=== PATIENT | male | born 1980 | race Caucasian/White ===

== ENCOUNTER 2016-06-16 16:58 | Inpatient (IN) | payer BC ==
[2016-06-16] MEDS ORDERED: ASPIRIN 81 MG TABLET, CHEWABLE PO ONE (17:03)
--- NOTE | 2016-06-16 17:08 | ER Document Report ---
ED Medical Screen (RME) - General Stated Complaint: CHEST PAIN Mode of Arrival: Ambulatory Information source: Patient Notes: Patient presents to the emergency department with reports of crushing chest pain with shortness of breath that started when he got out of the shower this afternoon. He also reported that he started sweating. Denies history of cardiac disease. Denies history of recent drug use. Reports grandfather with a history of cardiac disease, pacemaker. - Related Data Allergies/Adverse Reactions: No Known Allergies Allergy (Verified 06/16/16 17:02)
[2016-06-16 17:38] LABS: ABSOLUTE BASOPHILS # (AUTO) 0.1 10^3/uL (0.0-0.2); ABSOLUTE EOSINOPHILS # (AUTO) 0.3 10^3/uL (0.0-0.6); ABSOLUTE LYMPHOCYTES (AUTO) 3.1 10^3/uL (0.5-4.7); ABSOLUTE NEUT (AUTO) 8.7 10^3/uL (1.7-8.2); BASOPHILS % (AUTO) 0.5 % (0-2); EOSINOPHILS % (AUTO) 2.1 % (0-6); HEMOGLOBIN 14.7 g/dL (13.5-17.0); HGB HCT DIFFERENCE 0.1; LYMPHOCYTES % (AUTO) 23.6 % (13-45); MEAN CORPUSCULAR HEMOGLOBIN 29.5 pg (27.0-33.4); MEAN CORPUSCULAR HGB CONC 33.4 g/dL (32.0-36.0); MEAN CORPUSCULAR VOLUME 88 fl (80-97); MONOCYTES % (AUTO) 7.7 % (3-13); RED BLOOD COUNT 4.99 10^6/uL (4.35-5.55); RED CELL DISTRIBUTION WIDTH 13.3 % (11.5-14.0); SEGMENTED NEUTROPHILS % (AUTO) 66.1 % (42-78); WHITE BLOOD COUNT 13.1 10^3/uL (4.0-10.5)
[2016-06-16] MEDS ORDERED: ASPIRIN 325 MG TABLET PO ONE (17:41)
[2016-06-16] MEDS ORDERED: NITROGLYCERIN 0.4 MG/TAB 25 TAB/BOTTLE SL PRN (17:41)
[2016-06-16 17:53] LABS: ALANINE AMINOTRANSFERASE 65 U/L (21-72); ALBUMIN 3.8 g/dL (3.5-5.0); ALKALINE PHOSPHATASE 57 U/L (38-126); ANION GAP 10 (5-19); ASPARTATE AMINO TRANSFERASE 28 U/L (17-59); BILIRUBIN,TOTAL 0.5 mg/dL (0.2-1.3); BLOOD UREA NITROGEN 13 mg/dL (7-20); CARBON DIOXIDE 29 mmol/L (22-30); CHLORIDE 100 mmol/L (98-107); CREATINE KINASE 166 U/L (55-170); CREATININE RESULT 1.09 mg/dL (0.52-1.25); GLUCOSE 94 mg/dL (75-110); POTASSIUM 4.4 mmol/L (3.6-5.0); SODIUM 139.1 mmol/L (137-145); TOTAL PROTEIN 6.7 g/dL (6.3-8.2)
[2016-06-16 18:03] LABS: CREATINE KINASE MB 2.02 ng/mL (<4.55)
--- NOTE | 2016-06-16 18:03 | ER Document Report ---
ED General - General Chief Complaint: Chest Pain > 30 Stated Complaint: CHEST PAIN Time seen by provider: 17:30 Mode of Arrival: Ambulatory Information source: Patient Notes: 35-year-old male reports abrupt onset of left midsternal chest heaviness associated with shortness of breath and diaphoresis when getting out of the shower proximal and 90 minutes prior to arrival. He reports a prior history of symptoms like this. He reports last week having subjective fever chills nausea vomiting diarrhea but says all those symptoms have resolved. 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 He reports no recent history of travel or immobilization. He reports he felt well this morning. He denies pain numbness weakness or swelling to extremities, hematemesis, hematochezia, melena, dysuria, abdominal pain, or back pain. He reports his grandfather had extensive heart disease. Physical Exam: General: Alert, appears well. HEENT: Normocephalic. Atraumatic. PERRLA. Extraocular movements intact. Oropharynx clear. Neck: Supple. Non-tender. No JVD no carotid bruits Respiratory: No respiratory distress. Clear and equal breath sounds bilaterally. The patient does not reproduce patient's pain Cardiovascular: Regular rate and rhythm. PMI nondisplaced Abdominal: Normal Inspection. Soft, non-tender. No distension. Normal Bowel Sounds. Back: Non-tender. No deformity or step off. Extremities: Moves all four extremities. Upper extremities: Normal inspection. Non-tender. Normal color. Normal ROM. Normal temperature. Lower extremities: Normal inspection. Non-tender. No edema. Normal color. Normal ROM. Normal temperature. No Homans sign bilaterally Neurological: Speech clear mentation normal moves all extremities well amylase without difficulty Psychological: Normal affect. Normal Mood. Skin: Warm. Dry. Normal color. TRAVEL OUTSIDE OF THE [place] IN LAST 30 DAYS: No - Related Data Allergies/Adverse Reactions: No Known Allergies Allergy (Verified 06/16/16 17:02) Past Medical History - General Information source: Patient - Social History Smoking Status: Current Every Day Smoker Chew tobacco use (# tins/day): No Frequency of alcohol use: None Drug Abuse: None Family History: CAD, Other - Father with history of blood clot in leg Sister with history of PE Patient has suicidal ideation: No Patient has homicidal ideation: No - Past Medical History Cardiac Medical History: Reports: Hx DVT Neurological Medical History: Reports: None Endocrine Medical History: Reports: None Renal/ Medical History: Denies: Hx Peritoneal Dialysis Review of Systems - Review of Systems Constitutional: denies: Chills, Fever EENT: denies: Ear pain, Throat pain Cardiovascular: See HPI Respiratory: See HPI Gastrointestinal: denies: Abdominal pain, Nausea, Vomiting Genitourinary: denies: Burning, Dysuria Musculoskeletal: denies: Back pain Hematologic/Lymphatic: denies: Swollen glands Neurological/Psychological: denies: Weakness, Numbness Physical Exam - Vital signs Vitals: Resp Pulse Ox 25 H 97 06/16/16 17:50 06/16/16 17:50 Course - Re-evaluation Re-evalutation: 06/16/16 18:52 Glycerin Operator reports bilateral pulmonary emboli involving all segmental branches but there is flow past with no saddle embolus. Patient is hemodynamically stable with no hypoxia. Have discussed case with Dr. Vasques hospitalist service and she will inform oncoming shift manager physician Dr. Chandler and request patient receive orders for [facility] bed inpatient. First full dose Lovenox order has been given - Vital Signs Vital signs: Temp Pulse Resp BP Pulse Ox 16 105/68 92 06/16/16 18:01 06/16/16 18:01 06/16/16 18:01 - Laboratory Result Diagrams: 06/16/16 17:20 06/16/16 17:20 Laboratory results interpreted by me: 06/16/16 17:20 WBC 13.1 H Absolute Neutrophils 8.7 H - Diagnostic Test Radiology reviewed: Image reviewed, Reports reviewed - EKG Interpretation by Me Additional EKG results interpreted by me: 06/16/16 18:01 EKG reviewed by myself shows sinus rhythm at 89 S1 Q 3 T3 is noted Discharge - Discharge Clinical Impression: Pulmonary embolism Qualifiers: Pulmonary embolism type: other Chronicity: acute Acute cor pulmonale presence: without acute cor pulmonale Qualified Code(s): I26.99 - Other pulmonary embolism without acute cor pulmonale Condition: Serious Disposition: ADMITTED INPATIENT Admitting Provider: Hospitalist Unit Admitted: IMCU
[2016-06-16 18:11] LABS: TROPONIN I 0.266 ng/mL
[2016-06-16] MEDS ORDERED: MORPHINE SULFATE 10 MG/ML INJ IV ONE (18:15)
--- NOTE | 2016-06-16 18:21 | EKG REPORT ---
SEVERITY:- BORDERLINE ECG - SINUS RHYTHM NONSPECIFIC ST-T CHANGES- INFERIOR LEADS : Confirmed by: Quirino Grove MD 16-Jun-2016 18:20:35
[2016-06-16] MEDS ORDERED: ENOXAPARIN SODIUM INJ 120 MG/0.8 ML DISP.SYRIN SUBCUT SCH ×2 (18:45→19:15)
[2016-06-16] MEDS ORDERED: IPRATROPIUM/ALBUTEROL 0.5-2.5 MG/3 ML AMPUL NEB PRN (19:16)
[2016-06-16] MEDS ORDERED: ACETAMINOPHEN 325 MG TABLET PO PRN (19:16)
[2016-06-16] MEDS ORDERED: ONDANSETRON HCL INJ/PF 4 MG/2 ML SDV IV PRN (19:16)
[2016-06-16] MEDS ORDERED: MORPHINE SULFATE 10 MG/ML INJ IV PRN (19:20)
[2016-06-16] MEDS ORDERED: ENOXAPARIN SODIUM INJ 120 MG/0.8 ML DISP.SYRIN SUBCUT ONE (20:00)
[2016-06-16 21:15] LABS: APPEARANCE,URINE CLEAR; BILIRUBIN,URINE NEGATIVE (NEGATIVE); GLUCOSE, URINE NEGATIVE (NEGATIVE); KETONES,URINE NEGATIVE (NEGATIVE); LEUKOCYTE ESTERASE,URINE NEGATIVE (NEGATIVE); NITRITE,URINE NEGATIVE (NEGATIVE); PROTEIN,URINE NEGATIVE (NEGATIVE); URINE SPECIFIC GRAVITY 1.032; UROBILINOGEN,URINE NEGATIVE mg/dL (<2.0)
[2016-06-16 21:42] LABS: URINE BARBITURATES SCREEN NEGATIVE; URINE METHADONE SCREEN NEGATIVE; URINE PHENCYCLIDINE SCREEN NEGATIVE
[2016-06-17 00:10] LABS: CREATINE KINASE MB 2.98 ng/mL (<4.55)
[2016-06-17 00:13] LABS: TROPONIN I 0.406 ng/mL
--- NOTE | 2016-06-17 05:09 | PDOC H&P ---
History of Present Illness Admission Date/PCP: 06/16/16 19:16 Patient complains of: Chest pain History of Present Illness: MAXX SCRUGGS is a 35 year old male with a past medical history of left-sided DVT 2014 on Coumadin for 18 months, ADD and tobacco dependence. He has Been in his usual state of health until approximately 6 hours prior to presentation developing sharp chest pain which was nonradiating prompting seek evaluation emergency room where his found to have extensive bilateral pulmonary emboli by CTA. He denies recent leg swelling or pain no recent trauma. Chest pain has abated without narcotics he is hemodynamically stable is placed on Lovenox and referred to the hospitalist for admission. Past Medical History Cardiac Medical History: Reports: DVT Neurological Medical History: Reports: None Endocrine Medical History: Reports: None Psychiatric Medical History: Reports: Attention Deficit Hyperactivity Disorder, Tobacco Dependency Social History Smoking Status: Current Every Day Smoker Cigarettes Packs Per Day: 20 Number of Years Smokin Last Time Smoked: today Frequency of Alcohol Use: None Hx Recreational Drug Use: No Drugs: None Hx Prescription Drug Abuse: No - Advance Directive Resuscitation Status: Full Code Family History Family History: CAD, Other - Father with history of blood clot in leg Sister with history of PE Parental Family History Reviewed: Yes Children Family History Reviewed: Yes Sibling(s) Family History Reviewed.: Yes Medication/Allergy Home Medications: Lisdexamfetamine Dimesylate [Vyvanse] 70 mg PO DAILY 06/16/16 Allergies/Adverse Reactions: No Known Allergies Allergy (Verified 06/16/16 17:02) Review of Systems Constitutional: ABSENT: chills, fever(s), headache(s), weight gain, weight loss Eyes: ABSENT: visual disturbances Ears: ABSENT: hearing changes Cardiovascular: ABSENT: chest pain, dyspnea on exertion, edema, orthropnea, palpitations Respiratory: ABSENT: cough, hemoptysis Gastrointestinal: ABSENT: abdominal pain, constipation, diarrhea, hematemesis, hematochezia, nausea, vomiting Genitourinary: ABSENT: dysuria, hematuria Musculoskeletal: ABSENT: joint swelling Integumentary: ABSENT: rash, wounds Neurological: ABSENT: abnormal gait, abnormal speech, confusion, dizziness, focal weakness, syncope Psychiatric: ABSENT: anxiety, depression, homidical ideation, suicidal ideation Endocrine: ABSENT: cold intolerance, heat intolerance, polydipsia, polyuria Hematologic/Lymphatic: ABSENT: easy bleeding, easy bruising Physical Exam Vital Signs: Temp Pulse Resp BP Pulse Ox 97.2 F 83 20 132/87 H 98 06/17/16 04:29 06/17/16 04:29 06/17/16 04:29 06/17/16 04:29 06/17/16 04:29 Intake & Output 06/15/16 06/16/16 06/17/16 11:59 11:59 11:59 Intake Total 400 Balance 400 Weight 117.7 kg General appearance: PRESENT: no acute distress, well-developed, well-nourished Head exam: PRESENT: atraumatic, normocephalic Eye exam: PRESENT: conjunctiva pink, EOMI, PERRLA. ABSENT: scleral icterus Ear exam: PRESENT: normal external ear exam Mouth exam: PRESENT: moist, tongue midline Neck exam: ABSENT: carotid bruit, JVD, lymphadenopathy, thyromegaly Respiratory exam: PRESENT: clear to auscultation [place]. ABSENT: rales, rhonchi, wheezes Cardiovascular exam: PRESENT: RRR. ABSENT: diastolic murmur, rubs, systolic murmur Pulses: PRESENT: normal dorsalis pedis pul Vascular exam: PRESENT: normal capillary refill GI/Abdominal exam: PRESENT: normal bowel sounds, soft. ABSENT: distended, guarding, mass, organolmegaly, rebound, tenderness Rectal exam: PRESENT: deferred Extremities exam: PRESENT: full ROM. ABSENT: calf tenderness, clubbing, pedal edema Neurological exam: PRESENT: alert, awake, oriented to person, oriented to place , oriented to time, oriented to situation, CN II-XII grossly intact. ABSENT: motor sensory deficit Psychiatric exam: PRESENT: appropriate affect, normal mood. ABSENT: homicidal ideation, suicidal ideation Skin exam: PRESENT: dry, intact, warm. ABSENT: cyanosis, rash Results Laboratory Results: 06/16/16 21:01 Urine Color STRAW Urine Appearance CLEAR Urine pH 6.0 Ur Specific [place] 1.032 Urine Protein NEGATIVE Urine Glucose (UA) NEGATIVE Urine Ketones NEGATIVE Urine Blood NEGATIVE Urine Nitrite NEGATIVE Ur Leukocyte Esterase NEGATIVE Urine WBC (Auto) 1 Urine RBC (Auto) 1 06/16/16 06/16/16 23:26 23:26 Creatine Kinase 137 CK-MB (CK-2) 2.98 Troponin I 0.406 Impressions: Chest X-Ray 06/16/16 17:03 IMPRESSION: NO SIGNIFICANT RADIOGRAPHIC FINDING IN THE CHEST. Chest/Abdomen CTA 06/16/16 17:40 IMPRESSION: Extensive bilateral pulmonary arterial emboli involving both right and left pulmonary arteries and all segmental branches. No saddle component or RV/RVOT clot identified. 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
[2016-06-17 05:58] LABS: ANION GAP 8 (5-19); BLOOD UREA NITROGEN 12 mg/dL (7-20); CALCIUM 9.3 mg/dL (8.4-10.2); CARBON DIOXIDE 29 mmol/L (22-30); CHLORIDE 105 mmol/L (98-107); CREATINE KINASE 121 U/L (55-170); CREATININE RESULT 1.01 mg/dL (0.52-1.25); GLUCOSE 94 mg/dL (75-110); POTASSIUM 5.1 mmol/L (3.6-5.0); SODIUM 141.8 mmol/L (137-145)
[2016-06-17 06:06] LABS: CREATINE KINASE MB 2.85 ng/mL (<4.55); TROPONIN I 0.292 ng/mL
--- NOTE | 2016-06-17 08:36 | PDOC CONSULTATION ---
Consultation Consult Date: 06/17/16 Attending physician:: [facility] Consult reason:: Patient with history of DVT and past here with new PE History of Present Illness Admission Date/PCP: 06/16/16 19:16 Patient complains of: SOB. CP found to have PE History of Present Illness: 35-year-old male with known history of left lower cavity DVT, idiopathic, he doesn't remember exactly the date of it, but remembers it to be 5-6 years ago, he was on Coumadin for a year and a half, and then taken off. He was doing well until the last couple days prior to admission, he began having shortness of breath, chest pain ultimately was brought here, CTA of the chest indicated bilateral PE. He is currently on Lovenox. Past Medical History Cardiac Medical History: Reports: DVT Neurological Medical History: Reports: None Endocrine Medical History: Reports: None Psychiatric Medical History: Reports: Attention Deficit Hyperactivity Disorder, Tobacco Dependency Past Surgical History Past Surgical History: Reports: None Social History Smoking Status: Current Every Day Smoker Cigarettes Packs Per Day: 20 Number of Years Smokin Last Time Smoked: today Frequency of Alcohol Use: None Hx Recreational Drug Use: No Drugs: None Hx Prescription Drug Abuse: No - Advance Directive Resuscitation Status: Full Code Family History Family History: CAD, Other - Father with history of blood clot in leg Sister with history of PE Parental Family History Reviewed: Yes Children Family History Reviewed: Yes Sibling(s) Family History Reviewed.: Yes Medication/Allergy Home Medications: Lisdexamfetamine Dimesylate [Vyvanse] 70 mg PO DAILY 06/16/16 Allergies/Adverse Reactions: No Known Allergies Allergy (Verified 06/16/16 17:02) Review of Systems Constitutional: ABSENT: chills, fever(s), headache(s), weight gain, weight loss Eyes: ABSENT: visual disturbances Ears: ABSENT: hearing changes Cardiovascular: ABSENT: chest pain, dyspnea on exertion, edema, orthropnea, palpitations Respiratory: ABSENT: cough, hemoptysis Gastrointestinal: ABSENT: abdominal pain, constipation, diarrhea, hematemesis, hematochezia, nausea, vomiting Genitourinary: ABSENT: dysuria, hematuria Musculoskeletal: ABSENT: joint swelling Integumentary: ABSENT: rash, wounds Neurological: ABSENT: abnormal gait, abnormal speech, confusion, dizziness, focal weakness, syncope Psychiatric: ABSENT: anxiety, depression, homidical ideation, suicidal ideation Endocrine: ABSENT: cold intolerance, heat intolerance, polydipsia, polyuria Hematologic/Lymphatic: ABSENT: easy bleeding, easy bruising Physical Exam Vital Signs: Temp Pulse Resp BP Pulse Ox 97.2 F 83 20 132/87 H 98 06/17/16 04:29 06/17/16 04:29 06/17/16 04:29 06/17/16 04:29 06/17/16 04:29 Intake & Output 06/16/16 06/17/16 06/18/16 06:59 06:59 06:59 Intake Total 405 Balance 405 Weight 117.7 kg General appearance: PRESENT: no acute distress, well-developed, well-nourished Head exam: PRESENT: atraumatic, normocephalic Eye exam: PRESENT: conjunctiva pink, EOMI, PERRLA. ABSENT: scleral icterus Ear exam: PRESENT: normal external ear exam Mouth exam: PRESENT: moist, tongue midline Neck exam: ABSENT: carotid bruit, JVD, lymphadenopathy, thyromegaly Respiratory exam: PRESENT: clear to auscultation [place]. ABSENT: rales, rhonchi, wheezes Cardiovascular exam: PRESENT: RRR. ABSENT: diastolic murmur, rubs, systolic murmur Pulses: PRESENT: normal dorsalis pedis pul Vascular exam: PRESENT: normal capillary refill GI/Abdominal exam: PRESENT: normal bowel sounds, soft. ABSENT: distended, guarding, mass, organolmegaly, rebound, tenderness Rectal exam: PRESENT: deferred Extremities exam: PRESENT: full ROM. ABSENT: calf tenderness, clubbing, pedal edema Neurological exam: PRESENT: alert, awake, oriented to person, oriented to place , oriented to time, oriented to situation, CN II-XII grossly intact. ABSENT: motor sensory deficit Psychiatric exam: PRESENT: appropriate affect, normal mood. ABSENT: homicidal ideation, suicidal ideation Skin exam: PRESENT: dry, intact, warm. ABSENT: cyanosis, rash Results Laboratory Results: 06/17/16 05:25 06/16/16 06/17/16 21:01 05:25 Sodium 141.8 Potassium 5.1 H Chloride 105 Carbon Dioxide 29 Anion Gap 8 BUN 12 Creatinine 1.01 Est GFR ( Amer) > 60 Est GFR (Non-Af Amer) > 60 Glucose 94 Calcium 9.3 Urine Color STRAW Urine Appearance CLEAR Urine pH 6.0 Ur Specific [place] 1.032 Urine Protein NEGATIVE Urine Glucose (UA) NEGATIVE Urine Ketones NEGATIVE Urine Blood NEGATIVE Urine Nitrite NEGATIVE Ur Leukocyte Esterase NEGATIVE Urine WBC (Auto) 1 Urine RBC (Auto) 1 06/16/16 06/16/16 06/17/16 23:26 23:26 05:25 Creatine Kinase 137 121 CK-MB (CK-2) 2.98 Troponin I 0.406 06/17/16 05:25 Creatine Kinase CK-MB (CK-2) 2.85 Troponin I 0.292 Impressions: Chest X-Ray 06/16/16 17:03 IMPRESSION: NO SIGNIFICANT RADIOGRAPHIC FINDING IN THE CHEST. Chest/Abdomen CTA 06/16/16 17:40 IMPRESSION: Extensive bilateral pulmonary arterial emboli involving both right and left pulmonary arteries and all segmental branches. No saddle component or RV/RVOT clot identified. Assessment & Plan - Diagnosis (1) Pulmonary embolism Qualifiers: Pulmonary embolism type: other Chronicity: acute Acute cor pulmonale presence: without acute cor pulmonale Qualified Code(s): I26.99 - Other pulmonary embolism without acute cor pulmonale Is this a current diagnosis for this admission?: YesPlan: Idiopathic present, we will do a hypercoagulable workup as an outpatient, he does have strong family history of thrombosis, his mother has lupus and has had DVT, his sisters had idiopathic PE. Regardless he will need to be on lifelong anticoagulation, would recommend transition to Xarelto and discharge with that. - Time Time Spent: 50 to 70 Minutes Critical Time spent with patient: 25-34 minutes Smoking Cessation Education: 3 to 10 minutes Anticipated discharge: Home Within: within 24 hours
[2016-06-17 08:52] VITALS: BP 128/81
[2016-06-17] MEDS ORDERED: RIVAROXABAN 10 MG TABLET PO ONE (09:15)
[2016-06-17] MEDS ORDERED: ENOXAPARIN SODIUM INJ 120 MG/0.8 ML DISP.SYRIN SUBCUT SCH (10:00)
[2016-06-17] MEDS ORDERED: DOCUSATE SODIUM 100 MG CAPSULE PO SCH (10:00)
--- NOTE | 2016-06-17 14:37 | PDOC DISCHARGE SUMMARY ---
General - Admit/Disc Date/PCP Admission Date/Primary Care Provider: 06/16/16 19:16 Discharge Date: 06/17/16 - Discharge Diagnosis (1) Pulmonary embolism Is this a current diagnosis for this admission?: YesSummary: Patient was started on therapeutic lovenox, transitioned to Xarelto (2) Tobacco abuse Is this a current diagnosis for this admission?: YesSummary: Patient was counseled . He is contemplating quitting - Additional Information Resuscitation Status: Full Code Discharge Diet: Regular Discharge Activity: Activity As Tolerated, Balance Activity w/Rest Home Medications: Lisdexamfetamine Dimesylate [Vyvanse] 70 mg PO DAILY 06/16/16 Rivaroxaban [Xarelto 10 mg Tablet] 20 mg PO DAILY #30 tablet 06/17/16 Rivaroxaban [Xarelto 15 mg Tablet] 15 mg PO BID #42 tablet 06/17/16 History of Present Illness History of Present Illness: MAXX SCRUGGS is a 35 year old [facility] of chest pain and shortness of breath. He was found to have extensive bilateral PEs. He has a history of left lower extremity DVT in 2013. He was on coumadin for 18 months. He has no lower extremity swelling or pain at the present time. No recent trauma. He does have a history of tobacco use Hospital Course Hospital Course: Patient was admitted [facility] on telemetry.Dr Chapin saw the patient in consult. He was started on Xarelto 15 mg bid for the next 21 days. Tobacco cessation was discussed. Patient will follow up with Dr Chapin in the next month, sooner if any difficulties. Physical Exam Vital Signs: Temp Pulse Resp BP Pulse Ox 97.7 F 81 16 128/81 H 94 06/17/16 08:50 06/17/16 08:50 06/17/16 08:50 06/17/16 08:50 06/17/16 08:50 Intake & Output 06/16/16 06/17/16 06/18/16 06:59 06:59 06:59 Intake Total 605 Balance 605 Weight 117.7 kg General appearance: PRESENT: no acute distress, well-developed, well-nourished Head exam: PRESENT: atraumatic, normocephalic Eye exam: PRESENT: conjunctiva pink, EOMI, PERRLA. ABSENT: scleral icterus Ear exam: PRESENT: normal external ear exam Mouth exam: PRESENT: moist, tongue midline Neck exam: ABSENT: carotid bruit, JVD, lymphadenopathy, thyromegaly Respiratory exam: PRESENT: clear to auscultation [place]. ABSENT: rales, rhonchi, wheezes Cardiovascular exam: PRESENT: RRR. ABSENT: diastolic murmur, rubs, systolic murmur Pulses: PRESENT: normal dorsalis pedis pul Vascular exam: PRESENT: normal capillary refill GI/Abdominal exam: PRESENT: normal bowel sounds, soft. ABSENT: distended, guarding, mass, organolmegaly, rebound, tenderness Rectal exam: PRESENT: deferred Extremities exam: PRESENT: full ROM. ABSENT: calf tenderness, clubbing, pedal edema Neurological exam: PRESENT: alert, awake, oriented to person, oriented to place , oriented to time, oriented to situation, CN II-XII grossly intact. ABSENT: motor sensory deficit Psychiatric exam: PRESENT: appropriate affect, normal mood. ABSENT: homicidal ideation, suicidal ideation Skin exam: PRESENT: dry, intact, warm. ABSENT: cyanosis, rash Results Laboratory Results: 06/17/16 05:25 06/16/16 06/17/16 21:01 05:25 Sodium 141.8 Potassium 5.1 H Chloride 105 Carbon Dioxide 29 Anion Gap 8 BUN 12 Creatinine 1.01 Est GFR ( Amer) > 60 Est GFR (Non-Af Amer) > 60 Glucose 94 Calcium 9.3 Urine Color STRAW Urine Appearance CLEAR Urine pH 6.0 Ur Specific [place] 1.032 Urine Protein NEGATIVE Urine Glucose (UA) NEGATIVE Urine Ketones NEGATIVE Urine Blood NEGATIVE Urine Nitrite NEGATIVE Ur Leukocyte Esterase NEGATIVE Urine WBC (Auto) 1 Urine RBC (Auto) 1 06/16/16 06/16/16 06/17/16 23:26 23:26 05:25 Creatine Kinase 137 121 CK-MB (CK-2) 2.98 Troponin I 0.406 06/17/16 05:25 Creatine Kinase CK-MB (CK-2) 2.85 Troponin I 0.292 Impressions: Chest X-Ray 06/16/16 17:03 IMPRESSION: NO SIGNIFICANT RADIOGRAPHIC FINDING IN THE CHEST. Chest/Abdomen CTA 06/16/16 17:40 IMPRESSION: Extensive bilateral pulmonary arterial emboli involving both right and left pulmonary arteries and all segmental branches. No saddle component or RV/RVOT clot identified. Qualifiers PATEINT BEING DISCHARGED WITH ANY OF THE FOLLOWING DIAGNOSIS?: VTE (PE or DVT) VTE patient discharged on overlapping Therapy?: No Reason(s) for not prescribing Overlap Therapy:: Not indicated Plan Discharge Plan: Home with family Time Spent: Less than 30 Minutes
== END 2016-06-17 09:45 | disposition home or self-care (01) | DRG 176 ==
LOC: ER 16:58 → UNDOADMIN 19:15 → EH 19:15 → 3S 22:10
PROVIDERS: ADMIT Internal Medicine; ATTEND Internal Medicine
DX: I26.99 Other pulmonary embolism without acute cor pulmonale (principal); F90.9 Attention-deficit hyperactivity disorder, unspecified type; F17.200 Nicotine dependence, unspecified, uncomplicated; Z86.718 Personal history of other venous thrombosis and embolism
CPT/HCPCS: 36415; 71020; 71275; 80048; 80053; 80307; 81001; 82550; 82553; 84484; 85025; 93005; 93010; 99285; J1650